=== PATIENT | male | born 2000 | race Caucasian/White ===

== ENCOUNTER → 2023-11-02 | Outpatient (REF) | payer OTHER, SELFPAY | LOC: DHSLP | PROVIDERS: ATTENDING PHYSICIAN Internal Medicine Cardiovascular Disease; FAMILY PHYSICIAN Family Medicine | DX: G47.33 Obstructive sleep apnea (adult) (pediatric) (principal) | CPT/HCPCS: 95800 ==

== ENCOUNTER 2024-07-10 10:34 | Emergency (ER) | payer OTHER, SELFPAY ==
[2024-07-10 10:50] VITALS: BP 155/67
[2024-07-10 11:06] LABS: % Basophils 0.2 % (0-2); % Eosinophils 0.2 % (0-6); % Immature Granulocytes 0.4 % (0-0.5); % Lymphocytes 20.1 % (20.5-51.1); % Monocytes 15.2 % (1.7-9.3); % Neutrophils 63.9 % (42.2-75.2); Absolute Lymphocytes 1.1 10^3/uL (1.2-3.4); Absolute Monocytes 0.9 10^3/uL (0.1-0.6); Absolute Neutrophils 3.6 10^3/uL (1.4-6.5); Hematocrit 44.5 % (39.0-52.0); Hemoglobin 15.1 g/dL (13.0-18.0); Mean Corp Hgb Conc. 33.9 g/dL (33.0-37.0); Mean Corpuscular Hgb 30.9 pg (27.0-31.0); Mean Platelet Volume 9.8 fL (7.4-10.4); Nucleated Red Blood Cells % 0 % (-); Platelet Count 182 10^3/uL (130-400); Red Blood Cell Count 4.89 10^6/uL (4.70-6.10); Red Cell Dist. Width 11.9 % (11.5-14.5); White Blood Cell Count 5.6 10^3/uL (4.8-10.8)
[2024-07-10 11:30] LABS: ALT (SGPT) 22 U/L (0-50); AST (SGOT) 29 U/L (17-59); Albumin 4.8 g/dl (3.5-5.0); Alkaline Phosphatase 57 U/L (38-126); Blood Urea Nitrogen 10 mg/dl (9-20); Calcium 9.5 mg/dl (8.4-10.2); Carbon Dioxide 27 mmol/L (22-30); Chloride 96 mmol/L (98-107); Glucose 131 mg/dl (70-99); Potassium 4.4 mmol/L (3.5-5.1); Sodium 134 mmol/L (135-145); Total Bilirubin 0.4 mg/dl (0.2-1.3); Total Protein 7.9 g/dl (6.3-8.2); eGFR > 60.00
[2024-07-10 11:37] LABS: COVID-19 Antigen Negative (Negative)
--- NOTE | 2024-07-10 12:35 | ED.GENMED ---
History of Present Illness
General
Chief Complaint: Breathing Problem
Time Seen by Provider: 07/10/24 12:07
History of Present Illness
History of Present Illness:
TIME OF INITIAL ENCOUNTER: 12:40 PM
HPI: The patient presents due to flulike symptoms. This been ongoing for the past 3 days. He has been feeling short of breath. He reports testing negative for COVID and flu recently. Earlier this morning, his symptoms are more severe. Currently
while in the Emergency Department they do feel improved. Of note the patient has not tolerated prednisone in the past.
EXAM:
GENERAL: Well appearing in no distress
HEENT: Moist oral mucosa
CARDIOVASCULAR: No murmurs, normal heart rate, regular rhythm, No chest wall tenderness
PULMONARY: No respiratory distress, breath sounds are clear and equal
ABDOMEN: Soft with no peritoneal signs, no tenderness
NEUROLOGIC: Excellent strength all extremities, no coordination deficits
PSYCHIATRIC: Appropriate mental status, normal insight and judgement
EXTREMITIES: Nontender, no edema, moves all extremities equally
SKIN: No rash, no lesions
NUMBER AND COMPLEXITY OF PROBLEMS ADDRESSED AT THE ENCOUNTER
� Chronic conditions affecting care: Asthma, anxiety
� Acute Exacerbation and/or Progression of Chronic Illness: This is an acute problem
� Differential Diagnosis includes: Viral syndrome, influenza, COVID, pneumonia, reactive airway disease
AMOUNT AND/OR COMPLEXITY OF DATA TO BE REVIEWED AND ANALYZED
� I performed an independent evaluation of and my interpretation is:
EKG:
CT:
X-rays: Chest x-ray unremarkable
Laboratory Studies: Positive for flu A, COVID-negative, white count and hemoglobin are normal, chemistries relatively unremarkable
Other:
� Review of other/old records: The patient was seen here in 2021 with COVID manage as an outpatient
� Clinical information was obtained by an independent historian: I spoke to mother at bedside
� Prescriptions/Medications Considered but not given: Considered oral steroids however the patient does not tolerate
� Further testing considered but not performed:
RISK OF COMPLICATIONS AND/OR MORBIDITY OR MORTALITY OF PATIENT MANAGEMENT
� Social determinants of health affecting care: Lives at home
� Discussion with other providers:
� Escalation of care including admission/observation vs risk of discharge considered: The patient had been using albuterol nebulizer. Moving air very well currently. Mother suggested trying an inhaled steroids which I think is
a reasonable addition�prescription sent to the pharmacy for budesonide.
ANY OTHER UPDATES:
Past History
Past History
ED Past Medical History: Asthma and GERD
Social History
Tobacco: Former smoker
Alcohol: Occasional
Drug: None
Personal: Single
Employment: Student
Phy Exam
Physical Exam
Physical Exam:
See HPI
Course
Orders/Labs/Results
Orders:
Orders
07/10/24 10:53
CR Chest - 2 Views Urgent
Comment:
Reason For Exam: sob
07/10/24 10:59
COVID-19 Antigen Urgent
Source: Nasal Swab
Complete Blood Count/With Diff Urgent
Comprehensive Metabolic Panel Urgent
Influenza A+B Rapid Molecular Urgent
DOREEN Source: Nasal Swab
Specimen Description:
Abnormal Lab Results
07/10/24
10:59
Absolute Lymphs (auto) 1.1 L 10^3/uL
(1.2-3.4)
Absolute Monos (auto) 0.9 H 10^3/uL
(0.1-0.6)
Lymphocytes % 20.1 L %
(20.5-51.1)
Monocytes % 15.2 H %
(1.7-9.3)
Sodium 134 L mmol/L
(135-145)
Chloride 96 L mmol/L
(98-107)
Glucose 131 H mg/dl
(70-99)
07/10/24 10:59
07/10/24 10:59
Vital Signs
Initial and Last Documented VS:
Initial Vital Signs
Temp Pulse Resp BP Pulse Ox
37.2 C 102 18 155/67 98
07/10/24 10:50 07/10/24 10:50 07/10/24 10:50 07/10/24 10:50 07/10/24 10:50
Last Documented Vital Signs
Temp Pulse Resp BP Pulse Ox
37.2 C 102 18 155/67 98
07/10/24 10:50 07/10/24 10:50 07/10/24 10:50 07/10/24 10:50 07/10/24 10:50
*Critical Care Note
Total Time (30-74mins, 75-104mins- exclusive of procedures): Not Applicable
ED Attending Note
-
Portions of this chart may have been created with voice recognition software.� Occasional wrong word or��sound alike� substitutions may have occurred due to the inherent limitations of voice recognition software.
Discharge Plan
Departure
Patient Disposition: Home (Routine Discharge)
Date of Disposition: 07/10/24
Time of Disposition: 13:25
Patient with high blood pressure during this ER visit?: Yes
Discharge Problem:
Influenza
Instructions: Flu
Prescriptions:
New
budesonide 0.5 mg/2 mL suspension for nebulization
0.5 mg inhalation BID Qty: 60 0RF
No Action
prednisone 50 mg tablet
50 mg PO DAILY Qty: 4 0RF
Referrals:
Orville Longoria MD [Family Provider] -
Activity Restrictions/Additional Instructions:
I sent a prescription for budesonide nebulized form to the [facility] pharmacy in [place]. Continue albuterol.
Interventions
Interventions:
*Risk Screen - Suicide Last Done: 07/10/24 10:50
*General Assessment Last Done: 07/10/24 10:50
*Neglect/Abuse Screening Last Done: 07/10/24 10:50
*ED COVID-19 Vaccine History Last Done: 07/10/24 10:50
*Nursing Disposition Last Done: 07/10/24 13:44
ED- Cardiac Assessment Last Done: 07/10/24 12:48
ED- Pulmonary Assessment Last Done: 07/10/24 12:48
Discharge Date and Time
Discharge Date/Time: 07/10/24 13:45
Print Language: COLOMBIAN
== END 2024-07-10 13:45 | disposition home or self-care (01) ==
LOC: EMR 10:34
PROVIDERS: EMERGENCY PHYSICIAN Emergency Medicine; FAMILY PHYSICIAN Family Medicine
DX: J10.1 Influenza due to other identified influenza virus with other respiratory manifestations (principal); J45.909 Unspecified asthma, uncomplicated; K21.9 Gastro-esophageal reflux disease without esophagitis; Z87.891 Personal history of nicotine dependence
CPT/HCPCS: 99284; 71046; 80053; 85025; 87502; 87811